=== PATIENT | female | born 1975 | race Caucasian/White ===

== ENCOUNTER 2018-01-19 09:49 | Outpatient (REF) | payer MEDICARE, MEDICAID, SELFPAY ==
--- NOTE | 2018-01-19 09:00 | CER_PTH ---
PATIENT: PENNY [place] LOC: [facility] U#:[id number] AGE/SX: 42/F ROOM: RE01/19/[address]: Karri Castillo MD : 1975 BED: DIS: 01/19/2018 SPEC #: [id number] RECD: 01/19/18 12:55 STATUS: DEMETRIA REQ #: [id number] LAURA: 01/19/18 09:[address]: Karri Castillo DEPT: Surgical Specimen RECD BY: Whit Acuna ENTERED: 01/19/18 12:56 SP TYPE: CER OTHR DR: Chantal Cabrera Tissues: 1 - CERVICAL LEEP/LOOP 2 - CERVICAL LEEP/LOOP 3 - ENDOCERVICAL BX/CURRETTE Procedures: GROSS AND MICRO LEVEL 5 P16 IPEX Comments: [id number]
== END 2018-01-19 10:09 ==
LOC: LBN 09:49
PROVIDERS: PCP Nurse Practitioner Family; Visit Provider Obstetrics & Gynecology
DX: N87.1 Moderate cervical dysplasia (principal)
CPT/HCPCS: 88305; 88342; 88307

== ENCOUNTER 2019-04-15 15:12 | Outpatient (REF) | payer MEDICARE, MEDICAID, SELFPAY ==
--- NOTE | 2019-04-15 14:10 | ENDO_PTH ---
PATIENT: PENNY [place] LOC: [facility] U#:[id number] AGE/SX: 43/F ROOM: RE04/15/[address]: Kaylee Crowell : 1975 BED: DIS: 04/15/2019 SPEC #: [id number] RECD: 04/15/19 17:55 STATUS: DEMETRIA REQ #: [id number] LAURA: 04/15/19 14:[address]: Kaylee Crowell DEPT: Surgical Specimen RECD BY: Whit Acuna ENTERED: 04/15/19 17:56 SP TYPE: Endo OTHR DR: Lani Salazar Tissues: 1 - ENDOCERVICAL BX/CURRETTE 2 - CERVICAL BIOPSY Procedures: GROSS AND MICRO LEVEL 4 Comments: [id number]
== END 2019-04-15 15:32 ==
LOC: LBN 15:12
PROVIDERS: PCP Nurse Practitioner Family; Visit Provider Obstetrics & Gynecology Gynecology
DX: N87.1 Moderate cervical dysplasia (principal); R87.612 Low grade squamous intraepithelial lesion on cytologic smear of cervix (LGSIL)
CPT/HCPCS: 88305

== ENCOUNTER 2019-05-11 13:52 | Outpatient (REF) | payer MEDICARE, MEDICAID, SELFPAY ==
--- NOTE | 2019-05-11 13:30 | CER_PTH ---
PATIENT: PENNY [place] LOC: [facility] U#:[id number] AGE/SX: 43/F ROOM: RE05/11/[address]: Kaylee Crowell : 1975 BED: DIS: 05/11/2019 SPEC #: [id number] RECD: 05/11/19 17:54 STATUS: DEMETRIA RESilverio #: [id number] LARUA: 05/11/19 13:[address]: Kaylee Crowell DEPT: Surgical Specimen RECD BY: Whit Acuna ENTERED: 05/11/19 17:55 SP TYPE: CER OT DR: Lani Salazar Tissues: 1 - CERVICAL LEEP/LOOP 2 - CERVICAL LEEP/LOOP 3 - CERVICAL LEEP/LOOP Procedures: GROSS AND MICRO LEVEL 5 Comments: [id number]
== END 2019-05-11 14:12 ==
LOC: LBN 13:52
PROVIDERS: PCP Nurse Practitioner Family; Visit Provider Obstetrics & Gynecology Gynecology
DX: N72 Inflammatory disease of cervix uteri (principal); Z87.410 Personal history of cervical dysplasia
CPT/HCPCS: 88307